=== PATIENT | male | born 1995 | race Caucasian/White ===

== ENCOUNTER 2016-10-13 16:31 | Emergency (ER) | payer BC ==
[2016-10-13 17:03] VITALS: BP 120/65
--- NOTE | 2016-10-13 17:40 | UC ---
Throat Pain/Nasal Geoffrey HPI - HPI Summary HPI Summary: HEAD PAIN, CONGESTION, SORE THROAT X APPROX 2 WKS, NAUSEA THE PAST WEEK. He has had sinus infections in past and feels that it is same. Has used ceftin and bactrim in past without problems with these. Pain over cheeks and forehead. [place] was in [place] last week playing [place] in 30 degree weather with the team.Denies h/o asthma. + wheezing at times with cough and has had to use albuterol inhaler for this in past. He thinks the nausea is due to the PND he has been having. no vomiting. - History of Current Complaint Chief Complaint: UCGeneralIllness Stated Complaint: CONGESTION/SINUS Time Seen by Provider: 10/13/16 17:39 - Allergies/Home Medications Allergies/Adverse Reactions: Allergies Allergy/AdvReac Type Severity Reaction Status Date / Time Amoxicillin Allergy Hives Verified 10/13/16 17:04 Home Medications: Home Medications guaiFENesin ER TAB [Mucinex*] 600 mg PO BID PRN 10/13/16 [History Confirmed ] PMH/Surg Hx/FS Hx/Imm Hx Previously Healthy: Yes - Surgical History Surgical History: Yes Surgery Procedure, Year, and Place: LEFT KNEE SX X 3. RIGHT WRIST SX. RIGHT GREAT TOE SX X 2 - Family History Known Family History: Positive: Other - no asthma. Negative: Cardiac Disease, Diabetes - Social History Alcohol Use: Occasionally Substance Use Type: None Smoking Status (MU): Never Smoked Tobacco Review of Systems Constitutional: Fatigue Skin: Negative Eyes: Negative ENT: Nasal Discharge - + PND, + sinus pain. Respiratory: Cough Cardiovascular: Negative Gastrointestinal: Negative Genitourinary: Negative Motor: Negative Neurovascular: Negative Musculoskeletal: Negative Neurological: Negative Psychological: Negative All Other Systems Reviewed And Are Negative: Yes Physical Exam Triage Information Reviewed: Yes Appearance: Well-Appearing, No Pain Distress, Well-Nourished - very pleasant. Vital Signs: Initial Vital Signs Temp 99.2 F 10/13/16 16:56 Pulse 64 10/13/16 16:56 Resp 14 10/13/16 16:56 BP 120/65 10/13/16 16:56 Pulse Ox 100 10/13/16 16:56 Vital Signs Reviewed: Yes Eye Exam: Normal ENT: Positive: TMs normal, Other: - +PND, + b/l maxillary and frontal tenderness b/l. Dental Exam: Normal Neck exam: Normal Neck: Positive: Supple, Nontender, No Lymphadenopathy Respiratory Exam: Normal Respiratory: Positive: Lungs clear, Normal breath sounds, No respiratory distress, No accessory muscle use. Negative: Crackles, Rhonchi, Stridor, Wheezing Cardiovascular Exam: Normal Cardiovascular: Positive: RRR, No Murmur, Pulses Normal, Brisk Capillary Refill Abdominal Exam: Normal Abdomen Description: Positive: Nontender, Soft Musculoskeletal Exam: Normal Neurological Exam: Normal Psychological Exam: Normal Skin Exam: Normal Throat Pain/Nasal Course/Dx - Course Assessment/Plan: sinusitis. Alb inhaler sent for him to use prn for wheezing, especially while outside in cold weather for practice/games. He is very agreeabel with this plan. 1st dose bactrim given while here as pharmacy is closed. - Differential Dx/Diagnosis Differential Diagnosis/HQI/PQRI: Sinusitis, URI Provider Diagnoses: sinusitis. Discharge - Discharge Plan Condition: Stable Disposition: HOME Prescriptions: Albuterol HFA INHALER* [Ventolin HFA Inhaler*] 2 puff INH Q4H PRN #1 mdi PRN Reason: Cough Sulfamethox/Trimethoprim DS* [Bactrim DS 800/160 TAB*] 1 tab PO BID #20 tab Patient Education Materials: Sinusitis (ED) Referrals: Non Staff,Doctor [Primary Care Provider] - Additional Instructions: Follow up at [facility] in 2-3 days. Take a probiotic every day while you are on the antibiotics.
[2016-10-13] MEDS ORDERED: Sulfamethox/Trimethoprim DS 800/160* TAB PO ONE (17:46)
== END 2016-10-13 17:56 | disposition home or self-care (01) ==
LOC: UCCORT 16:31
DX: J32.9 Chronic sinusitis, unspecified (principal); Z88.1 Allergy status to other antibiotic agents
CPT/HCPCS: 99202; A9270-GY; G0463